=== PATIENT | female | born 1965 | race Caucasian/White ===

== ENCOUNTER 2018-03-03 13:17 | Emergency (ER) | payer BC ==
--- NOTE | 2018-03-03 13:24 | UC ---
Skin Complaint HPI - HPI Summary HPI Summary: 52 yo female presents with rash to left upper back and left upper chest first noticed this morning. She tells me that for the last 2 days she has had a weird burning/stinging sensation in the area, but noticed the rash today. Mild pain. Has not taken anything OTC. She is worried that this might be shingles. Denies fever, chills, recent illness, SOB, chest pain. - History of Current Complaint Time Seen by Provider: 03/03/18 13:24 Stated Complaint: SKIN COMPLAINT Hx Obtained From: Patient Onset/Duration: Sudden Onset Onset Severity: Mild Current Severity: Mild Pain Intensity: 3 Pain Scale Used: 0-10 Numeric - Allergy/Home Medications Allergies/Adverse Reactions: Allergies Allergy/AdvReac Type Severity Reaction Status Date / Time codeine Allergy Vomiting Verified 03/03/18 13:46 tomato Allergy Swelling Verified 03/03/18 13:28 Of Face,Lips,& Throat Home Medications: Home Medications Canagliflozin/Metformin HCl [Invokamet 50-1,000 mg Tablet] 2 tab PO DAILY [History Confirmed 03/03/18] Review of Systems Constitutional: Negative Skin: Rash Eyes: Negative ENT: Negative Respiratory: Negative Cardiovascular: Negative Gastrointestinal: Negative Neurovascular: Negative Neurological: Negative Psychological: Negative All Other Systems Reviewed And Are Negative: Yes PMH/Surg Hx/FS Hx/Imm Hx Endocrine History: Diabetes, Hypothyroidism, Dyslipidemia Psychological History: Bipolar Disorder - Surgical History Surgical History: Yes Surgery Procedure, Year, and Place: D&C; liver biopsies - Family History Known Family History: Positive: Cardiac Disease, Diabetes - Social History Occupation: Employed Full-time Lives: With Family Alcohol Use: Rare Substance Use Type: None Smoking Status (MU): Former Smoker Have You Smoked in the Last Year: No When Did the Patient Quit Smoking/Using Tobacco: 20 yrs ago Physical Exam - Summary Physical Exam Summary: GENERAL: NAD. WDWN. No pain distress. SKIN: Left upper back and left upper chest: Mild diffuse 5mm to 1.0cm diameter blister-like erythematous lesions. Mild TTP. No streaking, bleeding, or drainage. NECK: Supple. Nontender. No lymphadenopathy. CHEST: No accessory muscle use. Breathing comfortably and in no distress. CV: RRR. Without m/r/g. NEURO: Alert. CN II-XII grossly intact. PSYCH: Age appropriate behavior. Triage Information Reviewed: Yes Vital Signs: Vital Signs: Temp Pulse Resp BP Pulse Ox 96.8 F 108 20 130/69 97 03/03/18 13:35 03/03/18 13:35 03/03/18 13:35 03/03/18 13:35 03/03/18 13:35 Course/Dx - Course Course Of Treatment: Shingles of left upper back and left chest along dermatome C4-C5. Valacyclovir TID for 1 week and tylenol for pain. - Diagnoses Provider Diagnoses: Shingles Discharge - Sign-Out/Discharge Documenting (check all that apply): Discharge/Admit/Transfer - Discharge Plan Condition: Stable Disposition: HOME Prescriptions: Valacyclovir HCl [Valacyclovir] 1,000 mg PO TID #21 tablet Patient Education Materials: [facility] (ED) Referrals: Akash Dong MD [Primary Care Provider] - Additional Instructions: If you develop a fever, shortness of breath, chest pain, new or worsening symptoms - please call your PCP or go to the ED. 1) Keep the areas covered with band-aids and may take tylenol for discomfort - Billing Disposition and Condition Condition: STABLE Disposition: HOME
[2018-03-03 13:44] VITALS: BP 130/69
== END 2018-03-03 14:05 | disposition home or self-care (01) ==
LOC: UCEAST 13:17
DX: B02.9 Zoster without complications (principal); E11.9 Type 2 diabetes mellitus without complications; Z79.84 Long term (current) use of oral hypoglycemic drugs; E03.9 Hypothyroidism, unspecified; E78.5 Hyperlipidemia, unspecified; F31.9 Bipolar disorder, unspecified; Z88.5 Allergy status to narcotic agent; Z87.891 Personal history of nicotine dependence
CPT/HCPCS: 99212; G0463

== ENCOUNTER 2019-06-08 20:05 | Emergency (ER) | payer BC ==
--- OUTSIDE RECORDS SUMMARY | 2019-06-08 20:10 | XMS REPORT | Continuity of Care Document ---
:1965 External Reference #:[id number] Author Name Juan Keys M.D. (transmitted by agent of provider Kaitlynn Dubose) Address [address] [place] [address] Care Team Providers Name Role Phone Kaitlynn Ferro,Monroed, RD, Cde, Care Team Information Multiple Drum Sander [phone] CDN - Dietitian, Gregoria Anaya OD - Keeler Polygraph Operator Care Team Information Multiple Drum Sander [phone] Akash Dong III, MD - Internal Care Team Information Multiple Drum Sander [phone] Medicine Problems Active Problems Provider Date Type 2 diabetes mellitus Akash Dong M.D. Onset: 07/11/2011 Pure hypercholesterolemia Akash Dong M.D. Onset: 07/11/2011 Hypothyroidism Akash Dong M.D. Onset: 07/11/2011 Autoimmune hepatitis Akash Dong M.D. Onset: 01/12/2012 Epilepsy Akash Dong M.D. Onset: 01/12/2012 Social History Type Date Description Comments Sex Unknown Tobacco Use Start: Unknown End: Former Cigarette Smoker quit age 29; max 1 Unknown pack per week. Started early 20s Smoking Status Reviewed: 06/07/19 Former Cigarette Smoker quit age 29; max 1 pack per week. Started early 20s ETOH Use Rarely consumes alcohol Recreational Drug Use Never Used Drugs Tobacco Use Start: Unknown Patient has never smoked Exercise Type/Frequency Exercises sporadically walks on occ Allergies, Adverse Reactions, Alerts Active Allergies Reaction Severity Comments Date Codeine vomiting and dizzy 09/16/2009 Tomatoes 09/16/2009 Medications Active Medications SIG Qnty Indications Ordering Provider Date B12 Fast Dissolve sublingual daily 90tabs Juan Keys, 06/07/2019 M.DPepito 5000mcg Tablets Dispers Prednisone 1 by mouth every 30tabs Juan Keys, 05/09/2019 5mg day M.D. Tablets Levothyroxine Sodium 1 by mouth every 30tabs Akash Dong, 01/22/2019 day M.DPepito 125mcg Tablets Invokamet 1 by mouth twice 180tabs E11.9 Akash Dong, 06/23/2017 50-1000mg a day M.DPepito Tablets Fingerstick Blood bid and prn David Valdivia, 12/03/2009 Sugar MShabnam Lancets use as directed 100units Akash Dong, 10/30/2009 [facility] [place]ze 2 Test Strip use as directed 200units E11.9 Akash Dong, 10/28 Ej Lamictal 1.5 every morning 225tabs Deangelo Choi, 100mg and 1 every night M.DPepito Tablets Azathioprine 2 po q day 30tabs Hamilton Selby 50mg Ej Marr,FACP Tablets Levetiracetam 3 by mouth twice 180tabs Brendan Earl, 500mg a day N.P. Tablets Lansoprazole 1 by mouth twice Unknown 30mg daily Capsules DR Ramirez 2 tabs daily po Foshonna-Allison, 300mg Ej Yepez Capsules Immunizations CPT Code Status Date Vaccine Lot # [id number] Given 01/17/2019 Tdap - Tetanus/Diptheria/Acellular Pertussis 26847 Given 10/21/2009 Tetanus And Diptheria (Td) For Adult Use A013C Preservative Free Vital Signs Date Vital Result Comment 06/07/2019 12:58pm Height 65 inches 5'5" Weight 200.00 lb Heart Rate 84 /min BP Systolic 122 mmHg BP Diastolic 69 mmHg O2 % BldC Oximetry 97 % BMI (Body Mass Index) 33.3 kg/m2 05/13/2019 8:24am Height 65 inches 5'5" Weight 204.50 lb Heart Rate 93 /min BP Systolic 128 mmHg BP Diastolic 86 mmHg BMI (Body Mass Index) 34.0 kg/m2 Results Test Date Facility Test Result H/L Range Note Laboratory test 05/07/2019 [facility] RBC Folic See Comment [address] [place] [address] [phone] CBC Auto Diff 05/07/2019 [facility] White Blood 3.4 10^3/uL Low 3.5-10.[address] [place] [address] [phone] Red Blood Count 3.57 10^6/uL Low 3.70-4.87 Hemoglobin 13.5 g/dL Normal 12.0-16.0 Hematocrit 39 % Normal 35-47 Mean Corpuscular Volume 109 fL High 80-97 2 Mean Corpuscular Hemoglobin 38 pg High 27-31 Mean Corpuscular HGB Conc 35 g/dL Normal 31-36 Red Cell Distribution Width 16 % High 10-15 Platelet Count 209 10^3/uL Normal 150-450 Mean Platelet Volume 9.3 fL Normal 7.4-10.4 Abs Neutrophils 1.9 10^3/uL Normal 1.5-7.7 Abs Lymphocytes 1.1 10^3/uL Normal 1.0-4.8 Abs Monocytes 0.3 10^3/uL Normal 0-0.8 Abs Eosinophils 0.1 10^3/uL Normal 0-0.6 Abs Basophils 0.0 10^3/uL Normal 0-0.2 Abs Nucleated RBC 0.0 10^3/uL Granulocyte % 55.7 % Lymphocyte % 31.4 % Monocyte % 9.5 % Eosinophil % 2.6 % Basophil % 0.8 % Nucleated Red Blood Cells % 0.1 Hla B27 05/07/2019 [facility] Hla B27 Negative [address] [place] [address] [phone] Hla B27 Interp See Comment 4 Laboratory test 05/07/2019 [facility] Rheumatoid < 10 IU/mL Normal <[address] [place] [address] [phone] Erythrocyte Sed Rate 25 mm/Hr Normal 0-29 C Reactive Protein 9.71 mg/L High <8.01 Parul Igg AB Reflex 05/07/2019 [facility] SS-A/Ro Antibody <0.[address] [place] [address] [phone] SS-B/La Antibody <0.2 U 6 Sm (Nogueira) IgG Antibody <0.2 U 7 CYTOTECHNOLOGIST/CYTOLOGY SUPERVISOR Antibody, IgG 0.3 U 8 Scl-70 (Scleroderma) Antibody <0.2 U 9 Taty-1 Antibody <0.2 U 10 Laboratory test 05/07/2019 [facility] Angiotensin 57 U/L 16 - 85 11 finding [address] [place] [address] Enzyme [phone] Anca AB Ser If 05/07/2019 [facility] C-[place] [address] [phone] P-Anca Negative Negative 12 Laboratory test finding 05/07/2019 [facility] Aldolase 6.5 U/L <7.[address] [place] [address] [phone] Aso (Antistreptolysin O) Titer Negative IU/mL <200 Iu/mL 14 Vitamin B12 Binding Capacity 690 pg/mL Abnormal 800-2600 15 Lyme Screen W/ Reflex To WB Negative Negative Platelet 03/12/2019 [facility] Platelet 227 10^3/uL Normal 150 -450 [place] [address] [phone] Mean Platelet Volume 9.1 fL Normal 7.4-10.4 Inr/Protime 03/12/2019 [facility] Inr 0.95 Normal 0.82-1.[address] [place], [place] [address] [phone] Laboratory 03/12/2019 [facility] Partial 39.4 High 26.0-38.0 test [place] [address] PTT [phone] Laboratory 01/22/2019 [facility] Hemoglobin 6.4 5-7 test finding A1c Thiopurine 01/22/2019 [facility] 6-TGN [phone] [place] [address] Result [phone] 6-TGN Metabolite Assessment See Comment 17 6-MMPN Metabolite Result See Comment <5700 18 6-MMPN Metabolite Assessment See Comment 19 Laboratory test 01/22/2019 [facility] C Reactive 13.27 mg/L High <8.[address] [place] [address] [phone] Erythrocyte Sed Rate 59 mm/Hr High 0-29 Anti Nuclear Antibody 0.5 U 20 Mitochondrial AB AMA M2 Igg <0.1 U 21 Iron & Iron Binding 01/22/2019 [facility] Iron 137 g/dL Normal 50-[address] [place] [address] [phone] Unsaturated Iron Binding < 257 g/dL Total Iron Binding Capacity 272 g/dL Normal 250-450 Transferrin 194 mg/dL Low 203-362 % Iron Saturation 50 % Normal 15-55 Laboratory test 01/22/2019 [facility] GGTP 183 U/L High 9- 64.0 finding [address] [place] [address] [phone] Comp Metabolic 01/22/2019 [facility] Sodium 140 mmol/L Normal 135-145 Panel [address] [place] [address] [phone] Potassium 3.9 mmol/L Normal 3.5-5.0 Chloride 103 mmol/L Normal 101-111 Co2 Carbon Dioxide 29 mmol/L Normal 22-32 Anion Gap 8 mmol/L Normal 2-11 Glucose 140 mg/dL High 70-100 Blood Urea Nitrogen 13 mg/dL Normal 6-24 Creatinine 0.65 mg/dL Normal 0.51-0.95 BUN/Creatinine Ratio 20.0 Normal 8-20 Calcium 9.4 mg/dL Normal 8.6-10.3 Total Protein 6.3 g/dL Low 6.4-8.9 Albumin 4.4 g/dL Normal 3.2-5.2 Globulin 1.9 g/dL Low 2-4 Albumin/Globulin Ratio 2.3 Normal 1-3 Total Bilirubin 0.60 mg/dL Normal 0.2-1.0 Alkaline Phosphatase 155 U/L High 34-104 Alt 92 U/L High 7-52 Ast 62 U/L High 13-39 Egfr Non- 95.0 >60 Egfr 114.9 >60 22 CBC Auto 01/22/2019 [facility] White Blood 3.2 10^3/uL Low 3.5 -10.8 Diff [address] [place] [address] [phone] Red Blood Count 2.75 10^6/uL Low 3.70-4.87 Hemoglobin 11.0 g/dL Low 12.0-16.0 Hematocrit 31 % Low 33-41 Mean Corpuscular Volume 114 fL High 80-97 23 Mean Corpuscular Hemoglobin 40 pg High 27-31 Mean Corpuscular HGB Conc 35 g/dL Normal 31-36 Red Cell Distribution Width 17 % High 10.5-15 Platelet Count 208 10^3/uL Normal 150-450 Mean Platelet Volume 9.5 fL Normal 7.4-10.4 Abs Neutrophils 1.6 10^3/uL Normal 1.5-7.7 Abs Lymphocytes 1.1 10^3/uL Normal 1.0-4.8 Abs Monocytes 0.4 10^3/uL Normal 0-0.8 Abs Eosinophils 0.1 10^3/uL Normal 0-0.6 Abs Basophils 0 10^3/uL Normal 0-0.2 Abs Nucleated RBC 0 10^3/uL Granulocyte % 49.5 % Lymphocyte % 35.5 % Monocyte % 12.0 % Eosinophil % 1.8 % Basophil % 1.2 % Nucleated Red Blood Cells % 0.3 Laboratory test 01/22/2019 [facility] Cyclic Citrullinated < 15.6 U [address] [place] [address] [phone] Creatine Kinase(CK) 44 U/L Normal 10-223 Liver Function 01/16/2019 [facility] Total Protein 6.1 g/dL Low 6.4-8.[address] [place] [address] [phone] Albumin 4.1 g/dL Normal 3.2-5.2 Globulin 2.0 g/dL Normal 2-4 Albumin/Globulin Ratio 2.1 Normal 1-3 Total Bilirubin 0.70 mg/dL Normal 0.2-1.0 Direct Bilirubin 0.20 mg/dL High 0.03-0.18 Indirect Bilirubin 0.5 mg/dL Normal 0.3-1.0 Alkaline Phosphatase 139 U/L High 34-104 Alt 74 U/L High 7-52 Ast 46 U/L High 13-39 Laboratory test 01/16/2019 [facility] Creatine 42 U/L Normal 10-[address] Kinase(CK) [place] [address] [phone] TSH (Thyroid Stim Horm) 0.38 mcIU/mL Normal 0.34-5.60 Free T4 (Free Thyroxine) 1.27 ng/dL High 0.61-1.12 CBC Auto 01/16/2019 [facility] Red Blood 2.91 10^6/uL Low 3.70 -4.[address] [place] [address] [phone] Hemoglobin 11.1 g/dL Low 12.0-16.0 Hematocrit 33 % Normal 33-41 Mean Corpuscular Volume 114 fL High 80-97 Mean Corpuscular Hemoglobin 38 pg High 27-31 Mean Corpuscular HGB Conc 34 g/dL Normal 31-36 Red Cell Distribution Width 16 % High 10.5-15 Platelet Count Platelets clumpe <SEE NOTE> 10^3/uL High 150-450 25 White Blood Count 4.3 10^3/uL Normal 3.5-10.8 26 Manual Differential 01/16/2019 [facility] Immature 2 % Normal 0-[address] [place] [address] [phone] Neutrophil % 49 % Band % 2 % Normal 0-8 Lymphocytes % 29 % Monocytes % 17 % Eosinophils % 1 % Basophil % 2 % RBC Morphology Normal Normal Abs Neutrophils 2.2 10^3/uL Normal 1.5-7.7 Abs Lymphocytes 1.2 10^3/uL Normal 1.0-4.8 Abs Monocytes 0.7 10^3/uL Normal 0-0.8 Abs Eosinophils 0.1 10^3/uL Normal 0-0.6 Abs Basophils 0.1 10^3/uL Normal 0-0.2 Laboratory test 01/02/2019 [facility] Clotest SEE RESULT [address] [place] [address] [phone] Laboratory test 01/02/2019 [facility] Surgical SEE RESULT [address] [place] [address] [phone] 1 Test Result Flag Units Reference Folate, RBC Folate, Hemolysate 505.6 ng/mL Not Estab. Hematocrit 39.7 % 34.0-46.6 Folate, RBC 1274 ng/mL >498 Test Reported Date/Time: 05/09/2019 0606 ET Performed at [address] [address] Dir: Adriana Rivera MD 2 Consistent with Previous Results Reported on 02/21/19 3 REFERENCE VALUE Not Applicable 4 RESULT: HLA-B27 antigen was not detected. ADDITIONAL INFORMATION Method: Flow Cytometry Performing Laboratory CLIA# [id number] Test Performed by: [facility] - [address] [address] 5 REFERENCE VALUE <1.0 (Negative) 6 REFERENCE VALUE <1.0 (Negative) 7 REFERENCE VALUE <1.0 (Negative) 8 REFERENCE VALUE <1.0 (Negative) 9 REFERENCE VALUE <1.0 (Negative) 10 REFERENCE VALUE <1.0 (Negative) Test Performed by: [facility] [place] [address] 11 Test Performed by: [place] [address] 12 Negative for cANCA and pANCA patterns by immunofluorescence. ADDITIONAL INFORMATION This test was developed and its performance characteristics determined by [facility] in a manner consistent with CLIA requirements. This test has not been cleared or approved by the U.S. Food and Drug Administration. Test Performed by: [facility] [place] [address] 13 Test Performed by: [place] [address] 14 Normal values may vary with age, season and geographic area. Titers above upper limits may be indicative of infection, however only a two dilution rise in titer is required to be considered significant. ASO titer will usually rise above upper limits within one week of exposure, increase to peak levels at 3-5 weeks and return to baseline level at 6-12 twelve months. 15 INTERPRETIVE INFORMATION: Vitamin B12 Binding Capacity This assay measures the unsaturated binding capacity of serum for Vitamin B12. Performed by [facility], [address] [place] [address] [id number] [email or web address], Danny Rdz MD - Lab. Director Test Performed by: [facility] [address] [place] [address] 16 Standard intensity warfarin therapeutic range: 2.0-3.0 High intensity warfarin therapeutic range: 2.5-3.5 17 RESULT: Higher Risk of Leucopenia. Higher Likelihood of Response. 18 RESULT: <the lower limit of quantitation (987) 19 RESULT: Not quantifiable. Lower Risk of Hepatotoxicity. ADDITIONAL INFORMATION Units of Measure: pmol/8 x 10(8) RBC Proprietary and patented technology by [employer] The therapeutic range and toxic thresholds were established in an IBD patient population receiving azathioprine or 6-mercaptopurine. Metabolite testing should not replace laboratory monitoring for toxicity. Test Performed by: [employer] [facility] [address] [place] [phone] 20 REFERENCE VALUE <=1.0 (Negative) Test Performed by: [facility] - [address] [address] 21 REFERENCE VALUE <0.1 (Negative) Test Performed by: [place] [address] 22 Because ethnic data is not always readily available, this report includes an eGFR for both -Americans and non- Americans. The National Kidney Disease Education Program (NKDEP) does not endorse the use of the MDRD equation for patients that are not between the ages of 18 and 70, are , have extremes of body size, muscle mass, or nutritional status, or are non- or non-. According to the National Kidney Foundation, irrespective of diagnosis, the stage of the disease is based on the level of kidney function: Stage Description GFR(mL/min/1.73 m(2)) 1 Kidney damage with normal or decreased GFR 90 2 Kidney damage with mild decrease in GFR 60-89 3 Moderate decrease in GFR 30-59 4 Severe decrease in GFR 15-29 5 Kidney failure <15 (or dialysis) 23 Consistent with Previous Results Reported on 01/16/19 24 REFERENCE VALUE <20.0 (Negative) Test Performed by: [facility] - [address] , [place] [address] 25 Platelets clumped. Unable to perform accurate count. 26 White count confirmed by estimate 27 SEE RESULT BELOW Name: CATHY GALEANO Raquel : [address]: Marleni Michael MD Acct: [id number] Unit: [id number] AGE: 53 Location: ENDO Re01/02/19 SEX: F Status: REG REF SPEC: [id number] LILIAM: 01/02/19-[address]: Marleni Cooper MD REQ: [id number] RECD: 01/02/19-1300 STATUS: EMMA RACHEL DR: Akash Dong III, MD _ SOURCE: GAS ANTRUM SPDESC: ORDERED: Clotest Procedure Result Reported Site Clotest Final 01/03/19- 709 ML Clotest Negative * ML - Main Lab . END OF REPORT DEPARTMENT OF PATHOLOGY, [address] [place] [address] Joselo Cantu M.D. Director [facility] # [id number] 28 SEE RESULT BELOW Name: CATHY GALEANO : [address]: Marleni Michael MD Acct: [id number] Unit: [id number] AGE: 53 Location: ENDO Re01/02/19 SEX: F Status: DEP REF SPEC: [id number] LILIAM: 01/02/19-1121 SHANNAN MARTINEZ: Marleni Cooper MD REQ: [id number] RECD: 01/02/19-1403 STATUS: SUKI RACHEL DR: Akash Dong III, MD _ ORDERED: LEVEL 4/7, IMMUNO-FIRST ADDENDUM An H. pylori immunohistochemical stain, with appropriately reacting controls , was performed on sections cut from specimen 2 and is negative for Helicobacter organisms. Addendum Signed (signature on file) Antonieta Kwong MD 02/17 1236 FINAL DIAGNOSIS 1. Duodenum, biopsy: -- Benign small intestinal mucosa with no significant pathologic abnormalities. -- No evidence of villous blunting or increased intraepithelial lymphocytes. 2. Stomach, biopsy: -- Antral and body-type gastric mucosa with moderate chronic gastritis; see comment. 3. Stomach, biopsy: -- Body-type gastric mucosa with moderate chronic gastritis and reactive chemical gastropathy; see comment. 4. Esophagus, 35-37 cm, biopsy: -- Columnar-type mucosa with chronic inflammation and intestinal metaplasia. -- Dysplasia is absent. 5. Esophagus, 33-35 cm, biopsy: -- Columnar-type mucosa with chronic inflammation and intestinal metaplasia. -- Dysplasia is absent. 6. Esophagus, 31-33 cm, biopsy: -- Columnar--type mucosa with chronic inflammation and intestinal metaplasia. -- Dysplasia is absent. 7. Esophagus, 29-31 cm, biopsy: CONTINUED ON NEXT PAGE DEPARTMENT OF PATHOLOGY, [address] [place] [address] Joselo Cantu M.D. Director [facility] # [id number] RUN DATE: 01/04/19 [facility] LAB LIVE PAGE 2 Patient: CATHY GALEANO [id number] (Continued) FINAL DIAGNOSIS (Continued) -- Benign squamous and columnar-type mucosa with chronic inflammation and intestinal metaplasia. -- Dysplasia is absent. COMMENT: H. pylori immunohistochemical stains are pending for specimens 2 and 3 and the results will be reported in an addendum. CLINICAL HISTORY Nausea; vomiting POST-OPERATIVE DIAGNOSIS EGD: diffuse erythema; biopsy; diffuse gastric erythema biopsy; ulcer-cardia biopsy; hiatal hernia at 39 cm; gastroesophageal junction at 37 cm; z line 28 cm GROSS DESCRIPTION 1. The specimen is received in formalin labeled, Biopsy Duodenum, and consists of a 0.7 x 0.6 x 0.2 cm aggregate of messer-pink irregular soft tissue fragments which is submitted entirely in one cassette. 2. The specimen is received in formalin labeled, Gastric Biopsies, and consists of a 1.0 x 0.3 x 0.1 cm aggregate of messer-pink irregular soft tissue fragments which is submitted entirely in one cassette. 3. The specimen is received in formalin labeled, Biopsy Gastric Ulcer, and consists of a 0.3 x 0.2 x 0.2 cm messer-red irregular soft tissue fragment which is submitted entirely in one cassette. 4. The specimen is received in formalin labeled, Biopsy Esophagus 37-35 cm , and consists of a 0.7 x 0.6 x 0.1 cm aggregate of messer-red irregular soft tissue fragments which is submitted entirely in one cassette. 5. The specimen is received in formalin labeled, Biopsy Esophagus 33-35 cm , and consists of a 0.3 x 0.3 x 0.1 cm aggregate of messer-red irregular soft tissue fragments which is CONTINUED ON NEXT PAGE DEPARTMENT OF PATHOLOGY, [address] [place] [address] Joselo Cantu M.D. Director [facility] # [id number] RUN DATE: 01/04/19 [facility] LAB LIVE PAGE 3 Patient: GALEANOCATHY [id number] (Continued) GROSS DESCRIPTION (Continued) submitted entirely in one cassette. 6. The specimen is received in formalin labeled, Biopsy Esophagus 31-33 cm , and consists of a 0.5 x 0.4 x 0.2 cm aggregate of messer-pink irregular soft tissue fragments which is submitted entirely in one cassette. 7. The specimen is received in formalin labeled, Biopsy Esophagus 29-31 cm , and consists of a 0.7 x 0.5 x 0.1 cm aggregate of messer-pink irregular soft tissue fragments which is submitted entirely in one cassette. Signed by and Reported on: Antonieta Kwong MD 01/03/19 1253 END OF REPORT DEPARTMENT OF PATHOLOGY, [address] [place] [address] Joselo Cantu M.D. 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 polyarthropathy M35.01 Sicca syndrome with keratoconjunctivitis M53.3 Sacrococcygeal disorders, not elsewhere classified D64.9 Anemia, unspecified Office Visit 01/22/2019 3:00p [facility] Internal Akash Forbes E11.9 Type 2 diabetes Nahid Dong M.D. mellitus without Ccmob complications E78.00 Pure hypercholesterolemia, unspecified E03.9 Hypothyroidism, unspecified K75.4 Autoimmune hepatitis K25.9 Gastric ulcer, unsp as acute or chronic, w/o hemor or perf K21.9 Gastro-esophageal reflux disease without esophagitis Assessments Date Code Description Provider 06/07/2019 M06.4 Inflammatory polyarthropathy Juan Keys M.D. 06/07/2019 M53.3 Sacrococcygeal disorders, not elsewhere Juan Keys M.D. classified 06/07/2019 Z78.0 Asymptomatic menopausal state Juan Keys M.D. 06/07/2019 E53.8 Deficiency of other specified B group Juan Keys M.D. vitamins 06/07/2019 Z79.899 Other moth exterminator (current) drug therapy Juan Keys M.D. 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 05/07/2019 M06.4 Inflammatory polyarthropathy Juan Keys M.D. 05/07/2019 M35.01 Sicca syndrome with keratoconjunctivitis Juan Keys M.D. 05/07/2019 M53.3 Sacrococcygeal disorders, not elsewhere Juan Keys M.D. classified 05/07/2019 D64.9 Anemia, unspecified Juan Keys M.D. 01/22/2019 E11.9 Type 2 diabetes mellitus without Akash Dong M.D. complications 01/22/2019 E78.00 Pure hypercholesterolemia, unspecified Akash Dong M.D. 01/22/2019 E03.9 Hypothyroidism, unspecified Akash Dong M.D. 01/22/2019 K75.4 Autoimmune hepatitis Akash Dong M.D. 01/22/2019 K25.9 Gastric ulcer, unsp as acute or chronic, Akash Dong M.D. w/o hemor or perf 01/22/2019 K21.9 Gastro-esophageal reflux disease without Akash Dong M.D. esophagitis Plan of Treatment Future Appointment(s):09/10/2019 8:00 am - Juan Keys M.D. at [facility]05/11/2020 8:00 am - Deangelo Choi M.D. at [place] [facility]06/07/2019 - Juan Massimo, M.D.M06.4 Inflammatory dupcwfyhmgematdP23.3 Sacrococcygeal disorders, not elsewhere kqpuhhjuncO41.0 Asymptomatic menopausal wktixM79.8 Deficiency of other specified B group jjqlmfcfA69.899 Other longterm (current) drug therapyFollow up:Follow up in 2 or 3 months or sooner if needed Functional Status Description No Information Available Mental Status Description No Information Available Referrals Description No Information Available
[2019-06-08 20:15] VITALS: BP 141/78
--- NOTE | 2019-06-08 20:19 | UC ---
Lower Extremity/Ankle HPI - HPI Summary HPI Summary: 53 yo female presents with hip pain. She tells me that around 1430 today she was [place] the [place] and slipped on something on the floor. Her feet went out from under her and she landed on her buttocks. Did not hit her head or have LOC. She was able to get to her feet and tried to "walk it off". She was lying in bed and felt better this evening with rest alone, but went to get up to go to the bathroom and noticed right hip pain that was worse with each step. She came to . She has not taken any medications for her discomfort. Denies back pain, abdominal pain, dysuria, numbness, or tingling. - History of Current Complaint Chief Complaint: UCGeneralIllness Stated Complaint: HIP PAIN Hx Obtained From: Patient Onset/Duration: Sudden Onset Severity Initially: Moderate Severity Currently: Severe Pain Intensity: 10 Pain Scale Used: 0-10 Numeric Aggravating Factor(s): Standing, Ambulation Alleviating Factor(s): Rest Able to Bear Weight: Yes - Allergies/Home Medications Allergies/Adverse Reactions: Allergies Allergy/AdvReac Type Severity Reaction Status Date / Time codeine Allergy Tounge Verified 06/08/19 20:16 swelling Penicillins Allergy Eyes roll Verified 06/08/19 20:16 back and balls up tomato Allergy Swelling Verified 06/08/19 20:16 Of Face,Lips,& Throat, Vomiting Home Medications: Home Medications Ursodiol CAP* [Actigall CAP 300 MG*] 2 tab PO DAILY 06/08/19 [History Confirmed 06/08/19] predniSONE [Prednisone 5 MG TAB] 1 tab PO DAILY 06/08/19 [History Confirmed 04/19] PMH/Surg Hx/FS Hx/Imm Hx - Additional Past Medical History Additional PMH: Autoimmune hepatitis polyarthropathy Neurological History: Seizures - Surgical History Surgical History: Yes Surgery Procedure, Year, and Place: D&C; liver biopsies - Family History Known Family History: Positive: Cardiac Disease, Diabetes - Social History Lives: With Family Alcohol Use: Rare Substance Use Type: None Substance Use Comment - Amount & Last Used: CBD cream Smoking Status (MU): Former Smoker Have You Smoked in the Last Year: No When Did the Patient Quit Smoking/Using Tobacco: 20 yrs ago Review of Systems All Other Systems Reviewed And Are Negative: No Constitutional: Positive: Negative Skin: Positive: Negative Respiratory: Positive: Negative Cardiovascular: Positive: Negative Gastrointestinal: Positive: Negative Genitourinary: Positive: Negative Musculoskeletal: Positive: Other: - Hip pain Neurological: Positive: Negative Psychological: Positive: Negative Physical Exam - Summary Physical Exam Summary: GENERAL: NAD. WDWN. No pain distress. SKIN: No rashes, sores, lesions, or open wounds. CHEST: No accessory muscle use. Breathing comfortably and in no distress. CV: Pulses intact popliteal, PT, and DP. Cap refill <2seconds MSK: LEFT HIP: FROM with slight discomfort at ilium near IT origin. RIGHT HIP: FROM, but pain at ilium near IT origin much worse than left. No hip joint pain or greater trochanter pain. LUMBAR SPINE: NTTP. No vertebral tenderness NEURO: Alert. Sensations intact and symmetric B/L LEs L3-S1. Reflexes intact. PSYCH: Age appropriate behavior. Triage Information Reviewed: Yes Vital Signs: Initial Vital Signs Temp 97.0 F 06/08/19 20:11 Pulse 118 06/08/19 20:11 Resp 18 06/08/19 20:11 BP 141/78 06/08/19 20:11 Pulse Ox 99 06/08/19 20:11 Vital Signs Reviewed: Yes Lower Extremity Course/Dx - Course Course Of Treatment: XR:FINDINGS: Bones/joints: No acute fracture. No dislocation. Soft tissues: Unremarkable. IMPRESSION: No acute fracture. Suspect contusion vs IT band stain. Discussed with pt. She is having pain with ambulation and does not feel confident using crutches or a cane, therefore a walker was provided and she feels much better with this. Will rx for a short supply for norco and have her f /u with Ortho if her symptoms do not improve. - Differential Dx/Diagnosis Provider Diagnosis: Hip pain, Fall Discharge ED - Sign-Out/Discharge Documenting (check all that apply): Patient Departure All imaging exams completed and their final reports reviewed: Yes - Discharge Plan Condition: Stable Disposition: HOME Prescriptions: HYDROcodone/ACETAMIN 5-325 MG* [[place] 5-325 TAB*] 1 tab PO Q8H PRN #6 tab MDD 3 PRN Reason: Pain - Severe Patient Education Materials: Hip Pain (ED) Referrals: Akash Dong MD [Primary Care Provider] - Silvia Yoon MD [Medical Doctor] - If Needed Additional Instructions: If you develop a fever, shortness of breath, chest pain, new or worsening symptoms - please call your PCP or go to the ED immediately. Your blood pressure was high at todays visit. Please see your primary provider within 4 weeks for recheck and re-evaluation. 1) Rest and Ice your hip to reduce pain 2) Take the pain medication as directed 3) Use the cane for assistance with walking 4) Your X-Ray appears normal this evening, the radiologist will read this in the morning - please call use mid-morning to ask about your official results. 5) I recommend that you follow up with Orthopedics at the number below if your symptoms do not improve within 5 days - Billing Disposition and Condition Condition: STABLE Disposition: Home
[2019-06-08] MEDS ORDERED: HYDROcodone/ACETAMIN 5-325 MG* 1 TAB PO ONE (20:44)
== END 2019-06-08 21:11 | disposition home or self-care (01) ==
LOC: UCEAST 20:05
DX: M25.552 Pain in left hip (principal); M25.551 Pain in right hip; W01.0XXA Fall on same level from slipping, tripping and stumbling without subsequent striking against object, initial encounter; Y92.59 Other trade areas as the place of occurrence of the external cause; Z88.5 Allergy status to narcotic agent; Z88.0 Allergy status to penicillin; Z91.018 Allergy to other foods; Z87.891 Personal history of nicotine dependence
CPT/HCPCS: 73523; 99213; G0463